=== PATIENT | male | born 1965 | race Caucasian/White ===

== ENCOUNTER 2020-11-05 12:42 | Emergency (ER) | payer MEDICAID, OTHER ==
[~2020-11-05] VITALS: Ht 177.8 cm; Wt 104.0 kg
[2020-11-05 12:50] VITALS: BP 127/86
== END 2020-11-05 15:05 | disposition home or self-care (01) ==
LOC: ER 12:43
DX: M25.532 Pain in left wrist (principal); Z88.8 Allergy status to other drugs, medicaments and biological substances
CPT/HCPCS: 29125; 73110; 99283

== ENCOUNTER 2024-01-01 12:37 | Emergency (ER) | payer MEDICAID ==
[~2024-01-01] VITALS: Ht 180.3 cm; Wt 122.5 kg
[2024-01-01 12:39] VITALS: TEMP 98
[2024-01-01] MEDS ORDERED: TETRAcaine 0.5% ophthalmic drops 15ml EACHEYE ONE (14:00)
[2024-01-01] MEDS: fluorescein sod 1mg ophthalmic strip EACHEYE ONE (14:00)
[2024-01-01] MEDS: TETRACAINE 0.5% 4 ML OPHTHALMIC DROPS EACHEYE ONE (14:15)
[2024-01-01 15:53] VITALS: BP 142/89; PULSE 82; RESP 17; O2SAT 98
== END 2024-01-01 15:40 | disposition home or self-care (01) ==
LOC: ER 12:38
DX: H57.12 Ocular pain, left eye (principal); H53.8 Other visual disturbances; M19.90 Unspecified osteoarthritis, unspecified site; Z88.5 Allergy status to narcotic agent
CPT/HCPCS: 99283